=== PATIENT | male | born 1990 | race American Indian/Alaskan Native ===

== ENCOUNTER 2018-05-05 19:54 | Emergency (ER) | payer OTHER ==
[2018-05-05 20:21] VITALS: BP 147/84
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
[2018-05-05] MEDS ORDERED: ULTRAM PO ONE (21:38)
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
--- NOTE | 2018-05-05 22:23 | XRay Report ---
PROCEDURE: RIGHT HAND, 2 VIEWS TECHNIQUE: RIGHT hand radiographs, AP and lateral views. CPT 44095-HO HISTORY: Pain COMPARISONS: None . FINDINGS: Fracture (s) and/or Dislocation(s): None . Alignment: Normal . Joint space(s): Normal . Soft tissues: Normal . Bone mineralization: Normal . Foreign bodies: None . IMPRESSION: Normal Examination . This document is electronically signed by Evangelista An MD., May 05 2018 10:20:46 PM ET
== END 2018-05-05 22:25 | disposition home or self-care (01) ==
LOC: ED 19:54
DX: M79.641 Pain in right hand (principal); M54.2 Cervicalgia; M54.5 Low back pain; R20.0 Anesthesia of skin; F17.200 Nicotine dependence, unspecified, uncomplicated; F12.90 Cannabis use, unspecified, uncomplicated; V89.2XXA Person injured in unspecified motor-vehicle accident, traffic, initial encounter; Y93.89 Activity, other specified; Y92.488 Other paved roadways as the place of occurrence of the external cause; Y99.8 Other external cause status
CPT/HCPCS: 72070; 99283